=== PATIENT | male | born 1940 | race Caucasian/White ===

== ENCOUNTER 2019-02-11 08:28 | Day surgery (SDC) | payer OTHER ==
--- NOTE | 2019-02-09 15:34 | RAD REPORT ---
EXAM DESCRIPTION: Sancho Hilario (2 Views)02/09/2019 3:26 pm CLINICAL HISTORY: Abdominal pain/preop for hernia repair COMPARISON: None FINDINGS: The lungs appear clear of acute infiltrate. The heart is borderline enlarged IMPRESSION: No acute abnormalities displayed
[2019-02-09 15:52] LABS: Absolute Lymphocytes (CBC) 1.9 K/uL (0.7-4.9); Basophils % 0.5 % (0-1.3); Eosinophils % 4.1 % (0-4.4); Hematocrit 39.1 % (39.6-49.0); Lymphocytes % 27.4 % (15.3-44.8); MPV 8.8 fL (7.6-11.3)
[2019-02-09 16:05] LABS: Potassium 4.2 mmol/L (3.5-5.1)
--- NOTE | 2019-02-09 16:19 | EKG ---
Test Date: 2019-02-09 Test Time: 15:13:19 Treatment Supervisor: SHANTI MEASUREMENT RESULTS: Intervals: Rate: 77 MD: 182 QRSD: 80 QT: 388 QTc: 439 [place]: P: 48 MD: 182 QRS: -30 T: 52 INTERPRETIVE STATEMENTS: Normal sinus rhythm Left axis deviation Abnormal ECG Compared to ECG 04/11/2018 08:45:45 Left-axis deviation now present Electronically Signed On 02-09-19 16:19:18 CDT by [place] Green
[2019-02-09 16:41] LABS: Blood Morphology Comment NOTED (NOT SEEN); Hypochromasia 2+; Platelet Estimate ADEQ; Urine White Blood Cell Casts OK
[2019-02-09 16:42] LABS: Burr Cells FEW; Target Cells FEW
[2019-02-11] MEDS ORDERED: CEFAZOLIN/SWI 1gm 1 GM/10 ML SYR ONE (08:48)
[2019-02-11] MEDS ORDERED: Ringers Lactate 1,000 ML IV ONE ×2 (08:48→11:52)
--- OUTSIDE RECORDS SUMMARY | 2019-02-11 08:48 | XMS REPORT ---
:1940 Author Organization [facility] Address [address] [place] [address] Dr. Arenas [address] [place] [id number] Care Team Providers Name Role Phone BREE LY Unavailable Unavailable Problems This patient has no known problems. Allergies, Adverse Reactions, Alerts This patient has no known allergies or adverse reactions. Medications This patient has no known medications. Results Test Description Test Time Test Comments Text Results Atomic Results Result Comments TISSUE EXAM 2018-06-03 14:52:00 Surgical Pathology Report Case: [id number] Authorizing Provider: Bree Ly MD Collected: 05/30/2018 1101 Ordering Location: [facility] Received: 05/30/2018 1337 SERVICES Pathologist: Joshua Thomas MD Specimen: Bladder Tumor, re-resection of left anterior lateral wall high grade T1 tumor URINARY BLADDER, LEFT ANTERIOR LATERAL WALL, TRANSURETHRAL RE-RESECTION: - PREVIOUS RESECTION SITE CHANGES WITH ACUTE AND CHRONIC INFLAMMATION - NEGATIVE FOR DYSPLASIA OR MALIGNANCY - MUSCULARIS PROPRIA PRESENT Signing Pathologist Direct Phone Line: [phone] signed by Joshua Thomas MD on 06/03/2018 at 2:52 [id number] neoplasm of urinary bladder Re-resection of left anterior lateral wall, high-grade T1 tumorSpecimen consists of multiple fragments of cauterized arcos tissue measuring 2 x 1 x 0.4 cm in aggregate submitted entirely in A1. CG/ewPerformed. TISSUE EXAM 2018-04-17 16:02:00 Surgical Pathology Report Case: [id number] Authorizing Provider: Bree Ly MD Collected: 2018 1345 Ordering Location: [facility] PERIOPER[facility] Received: 2018 1552 SERVICES Pathologist: Joshua Thomas MD Specimens: A) - Bladder Tumor, ENBLCO RESECTION OF TUMOR WALL/ BASE OF TUMOR B) - Bladder Biopsy, Trigone C) - Bladder Biopsy, Right Wall, RIGHT LATERAL WALL D) - Bladder Biopsy, Wall, POSTERIOR MIDLINE E) - Bladder Biopsy, Wall, ANTERIOR WALL F) - Bladder Biopsy, Dome A. URINARY BLADDER, WALL AND BASE OF TUMOR, TURBT: - PAPILLARY UROTHELIAL CARCINOMA, HIGH GRADE (WHO GRADE 3), MINIMALLY INVASIVE INTO LAMINA PROPRIA - NEGATIVE FOR LYMPH/VASCULAR INVASION - MUSCULARIS PROPRIA IS PRESENT AND NOT INVOLVED BY TUMOR B. URINARY BLADDER, TRIGONE, BIOPSY: - MILD CHRONIC INFLAMMATION, NEGATIVE FOR DYSPLASIA/CARCINOMA - MUSCULARIS PROPRIA IS ABSENTC. URINARY BLADDER, RIGHT LATERAL WALL, BIOPSY: - MILD CHRONIC INFLAMMATION, NEGATIVE FOR DYSPLASIA/CARCINOMA - MUSCULARIS PROPRIA IS PRESENTD. URINARY BLADDER, POSTERIOR MIDLINE, BIOPSY: - MILD CHRONIC INFLAMMATION, NEGATIVE FOR DYSPLASIA/CARCINOMA - MUSCULARIS PROPRIA IS PRESENTE. URINARY BLADDER, ANTERIOR WALL, BIOPSY: - MILD CHRONIC INFLAMMATION, NEGATIVE FOR DYSPLASIA/CARCINOMA - MUSCULARIS PROPRIA IS PRESENTF. URINARY BLADDER, DOME, BIOPSY: - MILD CHRONIC INFLAMMATION, NEGATIVE FOR DYSPLASIA/CARCINOMA - MUSCULARIS PROPRIA IS PRESENT Signing Pathologist Direct Phone Line: [phone] signed by Joshua Thomas MD on 04/17/2018 at 4:02 [id number] neoplasm of urinary bladder A. Bladder tumor en bloc resection of tumor wall, base of tumor; B. Trigone bladder biopsy; C. Right lateral wall bladder biopsy; D. Posterior midline bladder biopsy; E. Anterior wall bladder biopsy; F. Dome of bladder biopsyThe specimen is received in six containers of formalin all labeled with the patient's information.Specimen A labeled "en bloc resection of tumor wall, base of tumor" consists of multiple friable fragments of arcos-pink soft tissue measuring 2.5 x 2.5 x 1 cm in aggregate. Submitted entirely A1 and A2. Specimen B labeled "right lateral wall bladder biopsy" consists of a 0.1 cm fragment of arcos tissue, submitted B1. Specimen C labeled "right lateral wall bladder biopsy" consists of a 0.2 cm round fragment of arcos-pink soft tissue, submitted entirely C1. Specimen D consists of of 0.5 cm round fragment of arcos-red soft tissue, submitted D1. Specimen E labeled "anterior wall bladder biopsy" consists of a 0.4 cm fragment of arcos-pink soft tissue, submitted E1.Specimen F labeled "dome bladder biopsy" consists of a 0.5 cm fragment of arcos-pink soft tissue, submitted F1. CG/pl Performed.
--- OUTSIDE RECORDS SUMMARY | 2019-02-11 08:48 | XMS REPORT | Clinical Summary ---
:1940 Author Organization [facility] Address [address] [place] [address] Care Team Providers Name Role Phone Funmi Mcdaniel Primary Care Provider Allergies Active Allergy Reactions Severity Noted Date Comments Sulfa (Sulfonamide Other (See Comments) 04/14/2018 Childhood reaction, was Antibiotics) told not to take Medications Medication Sig Dispensed Refills Start Date End Date Status alfuzosin (UROXATRAL) Take 10 mg by 0 Active 10 mg 24 hr tablet mouth daily. timolol (BETIMOL) 0.5 % Place 1 drop 0 Active ophthalmic solution into the right eye daily. nitrofurantoin, Take 1 capsule 6 capsule 0 2018 04/19/2018 macrocrystal-monohydrat (100 mg total) e, (MACROBID) 100 MG by mouth 2 capsule (two) times daily for 3 days. phenazopyridine Take 1 tablet 10 tablet 0 2018 04/19/2018 (PYRIDIUM) 200 MG (200 mg total) tablet by mouth 3 (three) times daily as needed for Pain for up to 3 days. acetaminophen-codeine Take 1 tablet 10 tablet 0 2018 04/26/2018 (TYLENOL-CODEINE #3) by mouth every 300-30 mg per tablet 4 (four) hours as needed for up to 10 days. Max Daily Amount: 6 tablets nitrofurantoin, Take 1 capsule 6 capsule 0 05/30/2018 06/02/2018 macrocrystal-monohydrat (100 mg total) e, (MACROBID) 100 MG by mouth 2 capsule (two) times daily for 3 days. phenazopyridine Take 1 tablet 10 tablet 0 05/30/2018 06/02/2018 (PYRIDIUM) 100 MG (100 mg total) tablet by mouth 3 (three) times daily as needed for Pain for up to 3 days. Active Problems Problem Noted Date Malignant neoplasm of urinary tract 05/30/2018 Bladder tumor 2018 Encounters Date Type Specialty Care Team Description 06/25/2018 Hospital Encounter Research Vitor Ly MD 05/30/2018 Surgery Vitor Ly CYSTWINTER BUSTAMANTE MD 05/30/2018 Anesthesia Event Nato Polk MD 05/30/2018 Hospital Encounter Vitor Ly MD 05/29/2018 Hospital Encounter Pre-Admission Vitor Ly MD Resource, Oqmt Preadmit Phone 2018 Anesthesia Event Kim Taylor MD 2018 Surgery Vitor Ly CYSTJIGNA BUSTAMANTE MD [facility] 2018 Hospital Encounter Vitor Ly MD 04/15/2018 Hospital Encounter Pre-Admission Resource, Oqmt Testing Preadmit Phone after 02/10/2018 Social History Tobacco Use Types Packs/Day Years Used Date Never Smoker Smokeless Tobacco: Never Used Alcohol Use Drinks/Week oz/Week Comments No Sex Assigned at Date Recorded Not on file Job Start Date Occupation Industry Not on file Not on file Not on file Travel History Travel Start Travel End No recent travel history available. Last Filed Vital Signs Vital Sign Reading Time Taken Blood Pressure 151/63 05/30/2018 12:20 PM CDT Pulse 84 05/30/2018 12:20 PM CDT Temperature 36.6 C (97.8 F) 05/30/2018 12:20 PM CDT Respiratory Rate 16 05/30/2018 12:20 PM CDT Oxygen Saturation 95% 05/30/2018 12:20 PM CDT Inhaled Oxygen Concentration - - Weight 103.7 kg (228 lb 11.2 oz) 05/30/2018 10:12 AM CDT Height 177.8 cm (5' 10") 05/30/2018 10:12 AM CDT Body Mass Index 32.82 05/30/2018 10:12 AM CDT Plan of Treatment Not on file Procedures Procedure Name Priority Date/Time Associated Diagnosis Comments CYSTOSCOPY,TURBT 05/30/2018 11:22 AM CDT Malignant neoplasm of urinary bladder, unspecified site (HCC) Case Notes 60 MINS PER AYLISSA TISSUE EXAM AP Routine 05/30/2018 11:01 AM Results for this CDT procedure are in the results section. TISSUE EXAM AP Routine 2018 1:45 PM Results for this CDT procedure are in the results section. CYSTOSCOPY,TURBT 2018 10:40 AM Malignant neoplasm CDT of urinary bladder, unspecified site (HCC) Special Needs ([facility]) CYSTOSCOPY,BLUE LIGHT [facility] 2018 10:40 AM CDT Malignant neoplasm of urinary bladder, unspecified site (HCC) Special Needs ([facility]) after 02/10/2018 Results Tissue Exam (05/30/2018 11:01 AM CDT)Only the most recent of2 resultswithin the time period is included. Case Report Surgical Pathology Report Case: [id number] Authorizing Provider:Vitor Ly MDCollected: 05/30/2018 1101 [facility] Ordering Location: [facility] Received: 05/30/2018 1337 SERVICES Pathologist: Joshua Thomas MD Specimen:Bladder Tumor, re-resection of left anterior lateral wall high grade T1 tumor DIAGNOSIS URINARY BLADDER, LEFT ANTERIOR LATERAL WALL, TRANSURETHRAL RE- RESECTION: - PREVIOUS RESECTION SITE CHANGES WITH ACUTE AND CHRONIC INFLAMMATION [facility] - NEGATIVE FOR DYSPLASIA OR MALIGNANCY - MUSCULARIS PROPRIA PRESENT Signing Pathologist Direct Phone Line: [phone] CPT Code(s) 37855 [facility] CLINICAL HISTORY Malignant neoplasm of urinary bladder [facility] SPECIMEN SOURCE Re-resection of left anterior lateral wall, [facility] high-grade T1 tumor GROSS DESCRIPTION Specimen consists of multiple fragments of [facility] cauterized arcos tissue measuring 2 x 1 x 0.4 cm in aggregate submitted entirely in A1. CG/ew MICROSCOPIC DESCRIPTION Performed. [facility] Specimen Tissue - Bladder Tumor Performing Organization Address City/State/Zipcode Phone Number [facility] [address] [place] [address] [phone] CENTER after 02/10/2018 Insurance Payer Benefit Plan / Subscriber ID Type Phone Address Group [employer] - MEDICARE A[employer] MEDICARE HMO xxxxxxxx [phone] [address] [place] [address]
[2019-02-11] MEDS ORDERED: BUPIVACAINE 0.5% PF 10 ML VIAL ONE (09:30)
[2019-02-11] MEDS ORDERED: FENTANYL CITR 100 MCG/2 ML ONE (09:47)
[2019-02-11] MEDS ORDERED: LIDOCAINE 1% MPF 5 ML VIAL ONE (09:47)
[2019-02-11] MEDS ORDERED: PROPOFOL 200 MG/20 ML VIAL IV ONE (09:47)
[2019-02-11] MEDS ORDERED: KETOROLAC 30 MG/ML INJ ONE (10:27)
[2019-02-11] MEDS ORDERED: ONDANSETRON 4 MG/2 ML VIAL ONE (10:42)
[2019-02-11] MEDS ORDERED: HYDROCODONE/APAP 7.5/325 MG TAB ONE (11:56)
--- NOTE | 2019-02-11 21:30 | OP ---
Date of Procedure: 02/11/2019 Surgeon: Bladimir Rodriguez MD Trawl Net Maker: OMAIRA Love. Preoperative Diagnosis: Incarcerated left inguinal hernia. Postoperative Diagnosis: Incarcerated left inguinal hernia. Procedure: Repair incarcerated left inguinal hernia. Estimated Blood Loss: Minimal. Specimen: Hernia sac. Finding: As above. Anesthesia: General. Complications: None. Disposition: The patient tolerated the procedure in stable condition, was taken to Recovery in good general condition. Procedure In Detail: The patient was brought to the OR and placed in supine position. General anest hesia was begun. The patient was prepped and draped in usual sterile fashion. Marcaine 0.5% was inf iltrated in a field block fashion in the left groin. A 15-blade was used to make a 5 cm oblique inci mena between the pubic tubercle and the anterior iliac superior spine. Subcutaneous tissue divided. Dimitris's fascia was identified and divided and deep to that, the aponeurosis was non-existent, was v pritesh greatly attenuated. The cord structures were identified, mobilized at the pubic tubercle, and th e cord skeletonized and a large indirect hernia sac identified and opened. There was incarcerated om entum which was carefully reduced back into the peritoneal cavity and then after the hernia sac was f shannan from the cord structures. High ligation of the hernia sac was done with #1 Prolene suture ligat ure and free hand tie. The hernia sac was excised and sent to Pathology as specimen. Then, approxim ately a 3 cm defect remained and then a large plug was placed in the internal ring secured with Versa Tack stapler. Then Onlay mesh was placed on the inguinal floor secured medially to the pubic tubercl e, inferiorly to the shelving edge, laterally to each other and superior to the conjoined tender. Th en, cord structures and ilioinguinal nerve were placed back in anatomical location. Then, the Dimitris 's fascia was closed with 3-0 chromic, edil to close the skin. Sterile dressing was applied. The patient was awakened and taken to Recovery in good condition. Discharge Note: The patient will go to Day Surgery, then home when stable. Disposition: Home. Condition: Stable. Discharge Instructions: Resume home medications and diet. Activities as tolerated. No heavy liftin g. Remove outer dressing in 2 days. Shower. Keep wound clean and dry. Followup in my office [address], call for appointment. Tylenol No.3 one tablet p.o. q.4 p.r.n. pain, scrotal support and ice pack is ordered. GAGAN/MICHELL Voice ID: [id number] Report ID: [id number]
== END 2019-02-11 13:45 | disposition home or self-care (01) ==
LOC: OR 08:28
PROVIDERS: ATTEND Surgery
PROC: 0YU60JZ Supplement Left Inguinal Region with Synthetic Substitute, Open Approach (ICD-10-PCS; principal; 2019-02-11 09:30)
DX: K40.30 Unilateral inguinal hernia, with obstruction, without gangrene, not specified as recurrent (principal); Z88.2 Allergy status to sulfonamides; Z85.51 Personal history of malignant neoplasm of bladder
CPT/HCPCS: 93005; 85025; 80048; 36415; 88302; 71046; 49507; J2704; J3010; J0690; J2405